=== PATIENT | male | born 1945 | race American Indian/Alaskan Native ===

== ENCOUNTER 2018-04-06 14:30 | Outpatient (CLI) | payer OTHER | END 2018-04-06 14:40 | disposition home or self-care (01) | LOC: LAB 14:30 | DX: R97.20 Elevated prostate specific antigen [PSA] (principal) ==

== ENCOUNTER 2018-05-12 08:35 | Outpatient (CLI) | payer OTHER | END 2018-05-12 08:43 | disposition home or self-care (01) | LOC: SONOGRAMA 08:35 | DX: R97.20 Elevated prostate specific antigen [PSA] (principal) ==